=== PATIENT | female | born 1985 | race Caucasian/White ===

== ENCOUNTER → 2018-02-27 20:33 | Outpatient (CLI) | payer OTHER, SELFPAY | PROVIDERS: Visit Provider Nurse Practitioner Family | DX: J02.9 Acute pharyngitis, unspecified (principal) ==

== ENCOUNTER → 2019-05-15 13:20 | Outpatient (CLI) | payer OTHER, SELFPAY ==
[2019-05-15 13:32] LABS: Basophils % 0.8 % (0.1-2.0); Eosinophils % 0.8 % (0.1-12.0); Hematocrit 40.8 % (37.0-47.0); Hemoglobin 14.2 g/dL (12.2-16.2); Lymphocytes # 1.6 K/mm3 (0.7-4.5); Lymphocytes % 31.9 % (10-50); Mean Corpuscular HGB Conc 34.8 g/dL (31.8-35.4); Mean Corpuscular Hemoglobin 30.1 pg (27.0-31.2); Mean Corpuscular Volume 86.6 fl (81-99); Mean Platelet Volume 8.7 fl (7.4-10.4); Monocytes # 0.2 K/mm3 (0.1-1.0); Monocytes % 4.5 % (1.7-9.3); Neutrophils # 3.2 K/mm3 (1.8-7.8); Platelet Count 260 K/mm3 (142-424); Red Blood Count 4.71 M/mm3 (4.20-5.40); Red Cell Distribution Width 12.3 % (11.5-17.5); White Blood Count 5.1 K/mm3 (4.8-10.8)
[2019-05-15 14:00] LABS: Alanine Aminotransferase 13 U/L (12-78); Albumin Level 4.6 g/dl (3.5-5.0); Albumin/Globulin Ratio 1.6 (1.1-1.8); Alkaline Phosphatase 70 U/L (38-126); Anion Gap 12.2 mEq/L (5-15); Aspartate Amino Transferase 20 U/L (14-36); Bilirubin,Total 0.3 mg/dl (0.2-1.3); Blood Urea Nitrogen 13 mg/dl (7-17); Calcium 9.7 mg/dl (8.4-10.2); Carbon Dioxide 26 mmol/L (22.0-30.0); Chloride 104 mmol/L (98-107); Chol/HDL Ratio 3.2 (1-3.5); Cholesterol 139 mg/dl (140-200); Estimated Glomerular Filt Rate 116 ml/min (>60); GFR (African American) 140 ML/MIN (>60); Globulin 2.9 g/dL (1.3-3.2); Glucose 95 mg/dl (74-100); HDL Cholesterol 44 mg/dl (40-60); Potassium 4.2 mmoL/L (3.5-5.1); Sodium 138 mmol/L (136-145); Total Protein,Serum 7.5 g/dl (6.3-8.2); Triglycerides 68 mg/dl (30-150); VLDL Cholesterol 14 mg/dL (0-40)
[2019-05-15 14:18] LABS: Direct LDL Cholesterol 87.64 mg/dL (100-129)
[2019-05-15 14:42] LABS: T4 (Thyroxine) 8.1 ug/dl (5.53-11.0)
[2019-05-15 14:55] LABS: Thyroid Stimulating Hormone 1.87 uIU/mL (0.465-4.68)
[2019-05-17 06:40] LABS: Vitamin D 25 Hydroxy 29.7 ng/mL (30.0-100.0)
== END ==
PROVIDERS: Visit Provider Nurse Practitioner Family
DX: F41.9 Anxiety disorder, unspecified (principal); F32.9 Major depressive disorder, single episode, unspecified; E55.9 Vitamin D deficiency, unspecified
CPT/HCPCS: 80053; 80061; 82652; 84436; 84443; 85025

== ENCOUNTER → 2019-09-21 11:20 | Outpatient (CLI) | payer OTHER, SELFPAY | PROVIDERS: Visit Provider Dermatology | DX: L40.0 Psoriasis vulgaris (principal) ==

== ENCOUNTER → 2019-09-27 15:11 | Outpatient (CLI) | payer OTHER, SELFPAY ==
[2019-09-29 08:50] LABS: HIV Screen 4th Generation wRfx Non Reactive (Non Reactive)
[2019-09-29 10:55] LABS: Hepatitis B Surface Antigen Negative (Negative)
[2019-09-29 11:11] LABS: Hep B Core Ab, Total Negative (Negative); Hep B Surface Ab, Qual Non Reactive (.); Hepatitis C Antibody <0.1 s/co ratio (0.0-0.9)
== END ==
PROVIDERS: Visit Provider Dermatology
DX: L40.0 Psoriasis vulgaris (principal)
CPT/HCPCS: 36415; 86480; 86703; 86704; 86706; 87340; 87380; G0432

== ENCOUNTER → 2019-12-04 15:41 | Outpatient (CLI) | payer OTHER, SELFPAY ==
[2019-12-08 18:11] LABS: QuantiFERON-TB Gold Plus Negative (Negative)
== END ==
PROVIDERS: Visit Provider Dermatology
DX: L40.0 Psoriasis vulgaris (principal)
CPT/HCPCS: 36415; 86480

== ENCOUNTER 2020-07-13 16:19 | Emergency (ER) | payer OTHER, SELFPAY ==
[2020-07-13 16:20] VITALS: BP 134/75; PULSE 89; RESP 16; TEMP 37; O2SAT 98; BMI 27.3
--- NOTE | 2020-07-13 16:38 | ECG_ITS ---
APPROVED REPORT Exam: Resting ECG HR:83 bpm ECG Measurements Heart Rate 83 AXES ND 152 P 66 QRSd 70 QRS 62 QT 344 T 42 QTc 404 Conclusion Normal sinus rhythm Low voltage QRS Borderline ECG Electronically signed by : Bertram Cabello, 07/14/2020 18:05:45
--- NOTE | 2020-07-13 16:38 | HMH.EDGENADL ---
ED Disposition Clinical Impression: Atypical chest pain Disposition: Home, Self-Care Condition on Discharge: Good Instructions: DI for Atypical Chest Pain Additional Instructions: Additional instructions for CHEST PAIN: See your physician as soon as possible for further evaluation. Return immediately if worsening chest pain, vomiting, shortness of breath, fever, coughing of blood. Referrals: Song Camilo MD [Primary Care Provider] - - Critical Care Critical Care Time: No Attestation: On 07/13/20, the high probability of a clinically significant, sudden or life threatening deterioration of the following system(s) required my full and direct attention, intervention and personal management. The time I documented below is in addition to time spent performing reported procedures but includes the following listed in this critical care notation. Medical Decision Making - Ralph Inquiry Pt receiving controlled substance: No Vital Signs: 07/13/20 16:20 07/13/20 17:30 07/13/20 18:13 Temperature 98.6 F Temperature Source Oral Pulse Rate 78 75 Pulse Rate [Radial] 89 Respiratory Rate 16 18 18 Blood Pressure 113/74 120/81 Blood Pressure [Right Arm] 134/75 Blood Pressure Mean 84 Blood Pressure Mean [Right Arm] 94 Blood Pressure Position [Right Arm] Sitting 02 Sat by Pulse Oximetry 98 98 98 Oxygen Delivery Method Room Air 07/13/20 18:30 Temperature Temperature Source Pulse Rate 71 Pulse Rate [Radial] Respiratory Rate 18 Blood Pressure 115/76 Blood Pressure [Right Arm] Blood Pressure Mean Blood Pressure Mean [Right Arm] Blood Pressure Position [Right Arm] 02 Sat by Pulse Oximetry 99 Oxygen Delivery Method - Lab Data Lab Results 07/13/20 16:29: Urine Color Yellow, Urine Appearance Clear, Urine pH 7.0, Ur Specific [place] 1.020, Urine Protein Negative, Urine Glucose (UA) Negative, Urine Ketones Negative, Urine Blood Negative, Urine Nitrate Negative, Urine Bilirubin Negative, Urine Urobilinogen 0.2, Ur Leukocyte Esterase Negative, Urine RBC None, Urine WBC None, Ur Squamous Epith Cells 3-5, Urine Bacteria None 07/13/20 16:29: Urine HCG, Qual Negative 07/13/20 16:44: WBC 9.2, RBC 4.63, Hgb 13.6, Hct 41.0, MCV 88.4, MCH 29.3, MCHC 33.1, RDW 13.1, Plt Count 266, MPV 7.8, Neut % (Auto) 71.0, Lymph % (Auto) 24.1, [place] % (Auto) 3.2, Eos % (Auto) 1.2, Baso % (Auto) 0.5, Neut # (Auto) 6.5, Lymph # (Auto) 2.2, [place] # (Auto) 0.3, Eos # (Auto) 0.1, Baso # (Auto) 0.0 07/13/20 16:44: Sodium 139, Potassium 3.3 L, Chloride 107, Carbon Dioxide 24, Anion Gap 11.3, BUN 7, Creatinine 0.60, Estimated Creat Clear 167, Estimated GFR 115, Est GFR ( Amer) 139, Glucose 116 H, Calcium 9.2, Total Bilirubin 0.5, AST 28, ALT 28, Alkaline Phosphatase 104, Troponin I < 0.01, Total Protein 7.7, Albumin 4.5, Globulin 3.2, Albumin/Globulin Ratio 1.4, Amylase 53, Lipase 50 07/13/20 16:44: D-Dimer 0.89 H Result diagrams: 07/13/20 16:44 07/13/20 16:44 Orders (Tests/Meds): ED MEDICATIONS Discontinued Medications Generic Name Dose Route Start Last Admin Trade Name Freq PRN Reason Stop Dose Admin Iopamidol 70 ml 07/13/20 18:08 07/13/20 18:09 Iopamidol-370 (76%);100ml Bottle IV 07/13/20 18:09 70 ml ONCE ONE Administration Sodium Chloride 50 ml 07/13/20 18:08 07/13/20 18:09 0.9 % Sodium Chloride 50 Ml Vial IV 07/13/20 18:09 50 ml ONCE ONE Administration Sodium Chloride 10 ml 07/13/20 18:08 07/13/20 18:09 Sodium Chloride 0.9% 10ml Syr (Rad Only) IV 07/13/20 18:09 10 ml ONCE ONE Administration ORDERS Category Date Time Status CTA Chest [CT angio chest] Stat Cat Scan 07/13/20 17:22 Taken Chest XR 2 view (NOT portable) [XR chest 2V] Stat Exams 07/13/20 16:48 Taken Troponin I Q3H Lab 07/13/20 20:00 Ordered Troponin I Q3H Lab 07/13/20 23:00 Ordered - Radiology Data #1 Image(s): Chest Image Reviewed: Yes I reviewed the patient's radiology image Pr
--- NOTE | 2020-07-13 16:48 | XR_ITS ---
PROCEDURE: XR CHEST 2V CLINICAL HISTORY: PAIN Chest pain COMPARISON: CT CT ANGIO CHEST from 07/13/2020 FINDINGS: The cardiomediastinal silhouette and pulmonary vascularity are within normal limits. The lungs are clear without infiltrates, suspicious nodules, or pleural effusions. No acute bony abnormalities. IMPRESSION: No acute findings. Dictated by: Marcelo Sánchez MD 07/14/2020 06:24 Marcelo Sánchez MD in [place] 07/14/2020 06:24
[2020-07-13 16:52] LABS: Microscopic, Urine URINE MICROSCOPIC (MICROSCOPIC)
[2020-07-13 16:54] LABS: Basophils % 0.5 % (0.1-2.0); Eosinophils # 0.1 K/mm3 (0.0-0.4); Eosinophils % 1.2 % (0.1-12.0); Hemoglobin 13.6 g/dL (12.2-16.2); Lymphocytes # 2.2 K/mm3 (0.7-4.5); Lymphocytes % 24.1 % (10-50); Mean Corpuscular HGB Conc 33.1 g/dL (31.8-35.4); Mean Corpuscular Hemoglobin 29.3 pg (27.0-31.2); Mean Corpuscular Volume 88.4 fl (81-99); Mean Platelet Volume 7.8 fl (7.4-10.4); Monocytes # 0.3 K/mm3 (0.1-1.0); Monocytes % 3.2 % (1.7-9.3); Neutrophils # 6.5 K/mm3 (1.8-7.8); Platelet Count 266 K/mm3 (142-424); Red Blood Count 4.63 M/mm3 (4.20-5.40); Red Cell Distribution Width 13.1 % (11.5-17.5); White Blood Count 9.2 K/mm3 (4.8-10.8)
[2020-07-13 16:54] LABS: Appearance,Urine CLEAR (Clear); Bilirubin,Urine Negative (Negative); Blood, Urine Negative (Negative); Color,Urine YELLOW (Yellow); Glucose,Urine (UA) Negative (Negative); Ketones,Urine Negative (Negative); Leukocyte Esterase,Urine Negative (Negative); Nitrate,Urine Negative (Negative); Protein,Urine Negative (Negative); Urobilinogen,Urine 0.2 EU/dl (0.2)
[2020-07-13 16:56] LABS: Urine Pregnancy, HCG Qual. Negative (Negative)
[2020-07-13 17:02] LABS: Alanine Aminotransferase 28 U/L (12-78); Albumin Level 4.5 g/dl (3.5-5.0); Albumin/Globulin Ratio 1.4 (1.1-1.8); Alkaline Phosphatase 104 U/L (38-126); Amylase 53 U/L (30-110); Anion Gap 11.3 mEq/L (5-15); Aspartate Amino Transferase 28 U/L (14-36); Bilirubin,Total 0.5 mg/dl (0.2-1.3); Blood Urea Nitrogen 7 mg/dl (7-17); Calcium 9.2 mg/dl (8.4-10.2); Carbon Dioxide 24 mmol/L (22.0-30.0); Chloride 107 mmol/L (98-107); Creatinine Clearance Estimated 167 mL/min (50-200); Estimated Glomerular Filt Rate 115 ml/min (>60); GFR (African American) 139 ML/MIN (>60); Globulin 3.2 g/dL (1.3-3.2); Glucose 116 mg/dl (74-100); Lipase 50 U/L (23-300); Potassium 3.3 mmoL/L (3.5-5.1); Sodium 139 mmol/L (136-145); Total Protein,Serum 7.7 g/dl (6.3-8.2)
[2020-07-13 17:06] LABS: D-Dimer 0.89 ug/mL (0.0-0.5)
[2020-07-13 17:15] LABS: Troponin I < 0.01 ng/ml (0.00-0.034)
--- NOTE | 2020-07-13 17:22 | CT_ITS ---
PROCEDURE: CT ANGIO CHEST CLINCIAL INDICATION: cp, elevated d-dimer COMPARISON: No exams were available for comparison TECHNIQUE: IV Contrast: 70ML Isovue 370 Axial images obtained with sagittal and coronal reformats. All CT scans at the facility use one or more dose reduction, viz: automated exposure control, ma/kV adjustment per patient size (including targeted exams where dose is matched to indication, i.e. head), or iterative reconstruction technique. FINDINGS: HEART AND MEDIASTINAL STRUCTURES: No evidence of pulmonary embolus, aortic aneurysm, or aortic dissection.. No mediastinal or hilar mass or adenopathy. LUNGS AND PLEURAL SPACES: Old granulomatous disease. No lobar consolidation or collapse. Faint increased density is noted in the lingula. BONY STRUCTURES: No acute bony abnormalities apparent. UPPER ABDOMEN: Unremarkable. ADDITIONAL FINDINGS: No other significant abnormalities. IMPRESSION: 1. No evidence of pulmonary embolus. 2. Faint ground-glass attenuation in the lingula nonspecific suggesting some mild underlying inflammation or infection Dictated by: Marcelo Sánchez MD 07/14/2020 08:23 Marcelo Sánchez MD in [facility] 07/14/2020 08:23
[2020-07-13 17:30] VITALS: BP 113/74; PULSE 78; RESP 18; O2SAT 98
[2020-07-13 18:13] VITALS: BP 120/81; PULSE 75; RESP 18; O2SAT 98
[2020-07-13 18:30] VITALS: BP 115/76; PULSE 71; RESP 18; O2SAT 99
[2020-07-13 19:30] VITALS: BP 132/71; PULSE 78; RESP 18; TEMP 36.7
== END 2020-07-13 19:32 | disposition home or self-care (01) ==
PROVIDERS: Emergency Provider Emergency Medicine; PCP Emergency Medicine
DX: R07.89 Other chest pain (principal); F41.9 Anxiety disorder, unspecified; F17.210 Nicotine dependence, cigarettes, uncomplicated
CPT/HCPCS: 71046; 71275; 80053; 81001; 81025; 82150; 83690; 84484; 85025; 85378; 93005; 99283; Q9967

== ENCOUNTER 2021-04-06 15:03 | Emergency (ER) | payer OTHER, SELFPAY ==
[2021-04-06 15:10] VITALS: BP 141/87; PULSE 90; RESP 18; TEMP 37.2; O2SAT 96; BMI 26.6
[2021-04-06 15:34] LABS: UTC Influenza A Antigen Negative (Negative)
[2021-04-06 15:35] LABS: UTC Influenza B Antigen Negative (Negative)
--- NOTE | 2021-04-06 15:38 | HMH.EDUTC ---
[facility] [place] Disposition Clinical Impression: Viral upper respiratory illness Disposition: Home, Self-Care Condition on Discharge: Good Instructions: Sore Throat, DI for Viral Syndrome, DI for COVID-19 (Suspected or Confirmed ) Additional Instructions: *Monitor Temp, Over the counter Motrin or Tylenol as directed/as needed Tylenol every 4 hours and Motrin every 6 hours (as long as your family doctor has told you that you can take it) for fever or pain. and straight to ER if unable to lower temp less than 101.0 after medication given *Warm salt water gargles may help to soothe the throat *Throat Lozenges *Warm fluids like tea with honey may help to soothe the throat *Sleep elevated *Humidifier/Vaporizer Your throat swab was sent for culture. Those results are typically sent to your primary care. Be sure to follow up in 2-3 days with your family doctor/primary care physician if no improvement so they can review those result and treat if necessary. If you don?t have a primary care doctor, I recommend you get one but in the mean time, you will have to return to a walk in clinic Follow up IMMEDIATELY for new or worsening symptoms or no Noticeable improvement over the next 48-72 hours. 911 for difficulty breathing or swallowing You were tested for today for COVID19 your test result should be back in the next 24-48 hours, you check your results on the [facility] my health portal if you have trouble logging on you may call for assistance to help you set up an account to see your results You was given a handout with instructions for Self Quarantine and Self isolation for while you wait on test results and what to do if they are positive If you are positive the Health Dept will be contacting you also Make sure to take your Vitamins Vit. C Vit D and Zinc if you can take them Referrals: Song Camilo MD [Primary Care Provider] - As needed Forms: Work/School Release Time of Disposition: 16:05 Medical Decision Making - Ralph Inquiry Pt receiving controlled substance: No Ralph was queried for this patient: No Vital Signs: 04/06/21 15:10 Temperature 98.9 F Temperature Source Oral Pulse Rate [Right Brachial] 90 Respiratory Rate 18 Blood Pressure [Right Arm] 141/87 H Blood Pressure Mean [Right Arm] 105 Blood Pressure Source [Right Arm] Automatic Cuff Blood Pressure Position [Right Arm] Sitting 02 Sat by Pulse Oximetry 96 Oxygen Delivery Method Room Air - Lab Data Lab results reviewed: Yes: I reviewed the patient's lab results. Lab Results 04/06/21 15:22: Influenza Type A Ag Negative, Influenza Type B Ag Negative 04/06/21 15:23: Group A Strep Rapid Negative Orders (Tests/Meds): ORDERS Category Date Time Status Strep Screen Confirmation Stat Micro 04/06/21 15:23 Received [facility] [place] HPI - General Stated complaint: fever, sore throat cough headache Time Seen by Provider: 04/06/21 15:39 Mode of Arrival: Ambulatory Source of Information: Patient Limitations: No Limitations Description of Symptoms (Recalled from Triage Doc. by RN): PATIENT C/O FEVER, BODY ACHES, AND FATIGUE THAT STARTED TUESDAY. HER CHILDREN RECENTLY HAD STREP HEENT Symptoms (Recalled from RN notes): No Resp Symptoms (Recalled from RN notes): No Skin Symptoms (Recalled from RN notes): No MS Symptoms (Recalled from RN notes): Yes Functional Status (Recalled from RN notes): WNL - History of Present Illness Provider Complaint: Patient state that she has been caring for her kids that had strep throat State that now she is having fever body aches scratchy throat and fatigue State that she was worried that she may have strep throat or flu so she came in when she started feeling ill - Related Data Home Medications Medication Instructions Recorded Confirmed levonorgestrel 20 mcg/24 hours (7 1 device INTRAUTERI ONCE 01/21/20 04/06/21 yrs) 52 mg intrauterine device Previous Rx's Medication Instructions Recorded escitalopram oxalate 10 mg tablet
[2021-04-06 15:54] LABS: Strep Scrn Group A (Rapid) Negative (Negative)
[2021-04-06 16:12] VITALS: BP 141/87; PULSE 90; RESP 18; TEMP 37.2; O2SAT 96
--- NOTE | 2021-04-07 13:19 | PC.NURSE ---
PATIENT NOTIFIED OF POSITIVE COVID TEST AT THIS TIME
== END 2021-04-06 16:15 | disposition home or self-care (01) ==
PROVIDERS: Emergency Provider Nurse Practitioner; PCP Emergency Medicine
DX: U07.1 COVID-19 (principal); F17.210 Nicotine dependence, cigarettes, uncomplicated; F41.9 Anxiety disorder, unspecified
CPT/HCPCS: 87430; 87804; 99203; C9803; G0463; U0003; U0005

== ENCOUNTER 2021-09-23 08:44 | Emergency (ER) | payer OTHER, SELFPAY ==
[2021-09-23 08:49] VITALS: BP 117/78; PULSE 79; RESP 16; O2SAT 98; BMI 27.3
--- NOTE | 2021-09-23 09:08 | HMH.EDUTC ---
[facility] [place] Clinical Impression: Abscess of skin of neck Disposition: Home, Self-Care Condition on Discharge: Good Instructions: Boil Additional Instructions: Keep the affected area clean and dry. Follow up with your regular doctor. Take the antibiotics as directed and apply the topical antibiotics as directed. Apply warm wet compresses to the affected area three or four times per day. GO TO THE ER FOR ANY WORSENING SYMPTOMS Prescriptions: Sulfamethoxazole/Trimethoprim [Bactrim DS tablet] 1 each PO BID 10 Days #20 tab Transmission Status: Received by [facility] Mupirocin [Bactroban 2% Ointment 22gm tube] 1 applicatio TP TID 7 Days #1 gm Transmission Status: Received by [facility] cephALEXin [cephALEXin 500mg capsule] 500 mg PO Q6H 10 Days #40 cap Transmission Status: Received by [facility] Referrals: Song Camilo MD [Primary Care Provider] - Time of Disposition: 09:12 Medical Decision Making - Medical Records Medical records reviewed: No: I reviewed the patient's medical records. - Ralph Inquiry Pt receiving controlled substance: No Vital Signs: 09/23/21 08:49 09/23/21 09:10 09/23/21 09:18 Temperature 98.0 F 98.0 F Temperature Source Oral Pulse Rate 88 Pulse Rate [Left Radial] 79 88 Respiratory Rate 16 16 16 Blood Pressure 124/88 Blood Pressure [Right Arm] 117/78 124/88 Blood Pressure Mean [Right Arm] 91 100 02 Sat by Pulse Oximetry 98 95 Oxygen Delivery Method Room Air [facility] [place] - General Stated complaint: possible insect bite on neck Time Seen by Provider: 09/23/21 09:08 Mode of Arrival: Ambulatory Source of Information: Patient Limitations: No Limitations Description of Symptoms (Recalled from Triage Doc. by RN): pt c/o insect bite to the left side of neck. pt states she first noticed it tuesday. pt states the insect bite is itchy but is not tender on palpation. pt has full range of motion of her neck with no pain. - History of Present Illness Provider Complaint: She states that she has a red area with some swelling on the left side of her neck. This site has developed over the past 3 days. She denies any known injury. She denies fever and chills. - Related Data Home Medications Medication Instructions Recorded Confirmed levonorgestrel 20 mcg/24 hours (7 1 device INTRAUTERI ONCE 01/21/20 04/06/21 yrs) 52 mg intrauterine device Previous Rx's Medication Instructions Recorded escitalopram oxalate 10 mg tablet 10 mg PO DAILY #30 tab 12/13/19 Mupirocin [Bactroban 2% Ointment 1 applicatio TP TID 7 Days #1 gm 09/23/21 22gm tube] Sulfamethoxazole/Trimethoprim 1 each PO BID 10 Days #20 tab 09/23/21 [Bactrim DS tablet] cephALEXin [cephALEXin 500mg 500 mg PO Q6H 10 Days #40 cap 09/23/21 capsule] Allergies Allergy/AdvReac Type Severity Reaction Status Date / Time No Known Drug Allergies Allergy Verified 09/23/21 09:13 [facility] History - Hepatitis A Screen Attestation statement:: This patient has been screened for Hepatitis A risk factors. I have reviewed the patient's past medical history: Yes Medical History: Reports:: Anxiety Other Medical History: Reports: Other Comment: psosarsis Other Surgeries: Yes: , Other Amputation: No Fractures: No Comment: wisdom - Social History Smoking Status: Current every day smoker Tobacco Type: cigarettes # Packs/Day (cigarettes): 1 Alcohol Intake: never Alcohol Intake Frequency:: other Substance Use Type: denies use Occupational Status: employed - Psychiatric History Pschychiatric History:: Reports:: Anxiety Family Hx:: Cancer ROS Obtained: Yes All systems reviewed & no additional complaints - Constitutional Constitutional: Denies chills, Denies fever(s) - Musculoskeletal Musculoskeletal: Denies joint pain - Integumentary/Breasts Skin/Breast: Reports as per HPI - Neurologic Neurologic: Denies tingling/numbness/burning se
[2021-09-23 09:10] VITALS: BP 124/88; PULSE 88; RESP 16; TEMP 36.7; O2SAT 95; BMI 27.3
[2021-09-23 09:18] VITALS: BP 124/88; PULSE 88; RESP 16; TEMP 36.7
== END 2021-09-23 09:19 | disposition home or self-care (01) ==
LOC: ER 08:51 → UTC 08:52
PROVIDERS: Emergency Provider Nurse Practitioner Family; PCP Emergency Medicine
DX: L02.11 Cutaneous abscess of neck (principal)
CPT/HCPCS: 99212; G0463

== ENCOUNTER 2022-07-05 13:10 | Emergency (ER) | payer OTHER, SELFPAY ==
[2022-07-05 13:50] VITALS: BP 128/83; PULSE 69; RESP 20; TEMP 36.8; O2SAT 98; BMI 26.6
--- NOTE | 2022-07-05 14:05 | EXP.UTC ---
Discharge Plan Disposition Patient Disposition: Home, Self-Care Condition: Good Prescriptions Prescriptions: New prednisone 10 mg tablet 10 mg PO BID 3 Days Qty: 6 0RF benzonatate [benzonatate] 100 mg capsule 100 mg PO TIDP PRN (Reason: Cough) Qty: 30 0RF amoxicillin [amoxicillin] 500 mg tablet 500 mg PO TID 10 Days Qty: 30 0RF No Action Mirena 20 mcg/24 hours (5 yrs) 52 mg intrauterine device 1 device INTRAUTERI ONCE escitalopram oxalate [Lexapro] 10 mg tablet 10 mg PO DAILY Qty: 30 2RF Referrals Follow up/Referrals: Song Camilo MD [Primary Care Provider] - See instructions Activity Restrictions/Add. Instructions Additional Instructions/Restrictions: Drink plenty of fluids. Take tylenol or ibuprofen for pain or fever. Take the medications as directed. Follow up with your regular doctor. GO TO THE ER FOR ANY WORSENING SYMPTOMS Throw your tooth brush away and get a new one. Clinical Impressions Clinical Impression: Pharyngitis Stand Alone Forms Stand Alone Forms: Work/School Release Instructions Patient Instructions: Sore Throat, DI for Pharyngitis/Tonsillopharyngitis -- Adult Discharge ED Provider: Kee Easley [facility] [place] [place] General Stated complaint: weakness,tired,sore throat Time Seen by Provider: 07/05/22 14:05 History of Present Illness Provider Complaint: She c/o sore throat for the past 2 days. Related Data Home Medications Medication Instructions Recorded Confirmed levonorgestrel 21 mcg/24 hours (8 1 device intrauterine ONCE 01/21/20 07/05/22 yrs) 52 mg intrauterine device control (Mirena) Previous Rx's Medication Instructions Recorded escitalopram oxalate 10 mg tablet 10 mg PO DAILY #30 tabs 12/13/19 (Lexapro) amoxicillin 500 mg tablet 500 mg PO TID 10 days #30 tabs 07/05/22 benzonatate 100 mg capsule 100 mg PO TIDP PRN Cough #30 caps 07/05/22 prednisone 10 mg tablet 10 mg PO BID 3 days #6 tabs 07/05/22 Allergies Allergy/AdvReac Type Severity Reaction Status Date / Time No Known Drug Allergies Allergy Verified 07/05/22 14:21 [facility] Disclaimer: The information contained in this section may have been updated after the patient was seen, as this information can be updated by other users. Social History Smoking Status: Current every day smoker tobacco type: cigarettes packs per day: 1 alcohol intake: never substance use type: denies use current occupational status: employed Travel in the last 8 weeks: None ROS Obtained: Yes All systems reviewed & no additional complaints except as documented Constitutional Constitutional: Reports chills and Reports fever(s) Eyes Eyes: Denies eye discharge ENT Ears, Nose, Mouth, and Throat: Reports as per HPI Cardiovascular Cardiovascular: Denies chest pain Respiratory Respiratory: Denies chest congestion and Reports cough Gastrointestinal Gastrointestingal: Reports nausea; Denies abdominal pain, constipation, cramping, diarrhea or vomiting Musculoskeletal Musculoskeletal: Denies arthralgias Integumentary/Breasts Skin/Breast: Denies rash Neurologic Neurologic: Denies paresthesias Physical Exam General General appearance: alert and in no apparent distress Head Head exam: atraumatic, normocephalic and normal inspection Eye Eye exam: Present normal appearance, PERRL and EOMI ENT ENT exam: Present mucous membranes moist and normal external ear exam Expanded ENT Exam TM/Canal exam: Bilateral TM: erythema and bulging Nose exam: Absent sinus tenderness Mouth exam: Present normal external inspection; Absent drooling Teeth exam: Present normal inspection Throat exam: Present tonsillar erythema, tonsillomegaly and tonsillar exudate Neck Neck exam: Present normal inspection, full ROM and trachea midline; Absent tenderness, meningismus or lymphadenopathy Chest Chest inspection: Present normal inspection and sy
[2022-07-05 14:24] LABS: UTC Strep Screen (Rapid) Negative (Negative)
[2022-07-05 15:07] VITALS: BP 128/83; PULSE 69; RESP 20; TEMP 36.8; O2SAT 98
== END 2022-07-05 15:07 | disposition home or self-care (01) ==
PROVIDERS: Emergency Provider Nurse Practitioner Family; PCP Emergency Medicine
DX: J02.9 Acute pharyngitis, unspecified (principal); R53.1 Weakness; F17.210 Nicotine dependence, cigarettes, uncomplicated
CPT/HCPCS: 87880; 99212; 99214; G0463